=== PATIENT | female | born 2000 | race Caucasian/White ===

== ENCOUNTER 2019-09-30 14:32 | Emergency (ER) | payer OTHER ==
[~2019-09-30] VITALS: Ht 175.3 cm; Wt 93.9 kg
[2019-09-30 15:06] VITALS: BP 112/75; Ht 175.3 cm; Wt 93.9 kg
== END 2019-09-30 15:20 | disposition home or self-care (01) ==
LOC: ED 14:32
DX: J02.9 Acute pharyngitis, unspecified (principal); R50.9 Fever, unspecified

== ENCOUNTER 2020-06-09 22:00 | Emergency (ER) | payer OTHER ==
[~2020-06-09] VITALS: Ht 175.3 cm; Wt 99.3 kg
[2020-06-09 22:12] VITALS: Ht 175.3 cm; Wt 99.3 kg
[2020-06-09 23:31] VITALS: BP 118/75
== END 2020-06-09 23:31 | disposition home or self-care (01) ==
LOC: ED 22:00
DX: K12.1 Other forms of stomatitis (principal)